=== PATIENT | female | born 1980 | race Two or more races ===

== ENCOUNTER 2022-05-04 08:00 | Inpatient (IN) | payer OTHER ==
[~2022-05-04] VITALS: Ht 160 cm; Wt 53.1 kg
== END 2022-05-07 13:18 | disposition home or self-care (01) | DRG 743 ==
LOC: OB/GYN 05-05 07:15 → O/R 05-05 07:15 → SURH 05-05 08:00 → OB/GYN 05-05 12:23
PROVIDERS: ADMIT Obstetrics & Gynecology Gynecologic Oncology; ATTEND Obstetrics & Gynecology Gynecologic Oncology
PROC: 0UT70ZZ Resection of Bilateral Fallopian Tubes, Open Approach (ICD-10-PCS; 2022-05-05)
PROC: 0UT20ZZ Resection of Bilateral Ovaries, Open Approach (ICD-10-PCS; 2022-05-05)
PROC: 07BC0ZZ Excision of Pelvis Lymphatic, Open Approach (ICD-10-PCS; 2022-05-05)
PROC: 0TN70ZZ Release Left Ureter, Open Approach (ICD-10-PCS; 2022-05-05)
PROC: 0TN60ZZ Release Right Ureter, Open Approach (ICD-10-PCS; 2022-05-05)
PROC: 0DNW0ZZ Release Peritoneum, Open Approach (ICD-10-PCS; 2022-05-05)
PROC: 0WUF07Z Supplement Abdominal Wall with Autologous Tissue Substitute, Open Approach (ICD-10-PCS; 2022-05-05)
PROC: 0UT90ZZ Resection of Uterus, Open Approach (ICD-10-PCS; principal; 2022-05-05 08:00)
DX: D25.9 Leiomyoma of uterus, unspecified (principal); N80.03 Adenomyosis of the uterus; N80.42 Endometriosis of rectovaginal septum with involvement of vagina; N72 Inflammatory disease of cervix uteri; Z20.822 Contact with and (suspected) exposure to COVID-19